=== PATIENT | female | born 1960 | race Caucasian/White ===

== ENCOUNTER 2024-09-09 08:40 | Observation (INO) ==
--- NOTE | 2024-08-21 15:52 | PAT Medication Instructions ---
Medication Instructions Date of Service August 21, 2024 Home Medications Medication Instructions Recorded hydrocodone 5 mg-acetaminophen 325 1 tab PO Q6H PRN pain #20 tabs 10/15/24 mg tablet aspirin 81 mg tablet,delayed release 81 mg PO QPM carvedilol 6.25 mg tablet 6.25 mg PO HS cholecalciferol (vitamin D3) 50 mcg (2,000 unit) capsule 50 mcg PO QPM montelukast 10 mg tablet 10 mg PO HS olmesartan 20 mg tablet 20 mg PO HS rosuvastatin 5 mg tablet 5 mg PO HS triamcinolone acetonide 55 mcg nasal spray aerosol (Nasacort) 1 spray intranasal QAM hydrocodone 5 mg-acetaminophen 325 mg tablet 1 tab PO Q6H PRN acetaminophen 650 mg tablet,extended release 650 - 1,300 mg PO Q12H PRN ascorbic acid (vitamin C) 1,000 mg tablet (Vitamin C) 1 g PO QPM ferrous sulfate, dried 159 mg (45 mg iron) tablet,extended release (iron ER) 159 mg PO QPM gabapentin 100 mg capsule 100 mg PO BID levocetirizine 5 mg tablet 5 mg PO HS omeprazole 20 mg tablet,delayed release 20 mg PO HS Continue as directed triamcinolone acetonide 55 mcg nasal spray aerosol (Nasacort) 1 spray intranasal QAM ASK your prescriber and surgeon aspirin 81 mg tablet,delayed release 81 mg PO QPM Take morning of surgery With a small sip of water, OTHERWISE NOTHING TO EAT OR DRINK AFTER MIDNIGHT: hydrocodone 5 mg-acetaminophen 325 mg tablet 1 tab PO Q6H PRN(if needed) acetaminophen 650 mg tablet,extended release 650 - 1,300 mg PO Q12H PRN(if needed) gabapentin 100 mg capsule 100 mg PO BID Take evening before surgery carvedilol 6.25 mg tablet 6.25 mg PO HS cholecalciferol (vitamin D3) 50 mcg (2,000 unit) capsule 50 mcg PO QPM montelukast 10 mg tablet 10 mg PO HS olmesartan 20 mg tablet 20 mg PO HS rosuvastatin 5 mg tablet 5 mg PO HS hydrocodone 5 mg-acetaminophen 325 mg tablet 1 tab PO Q6H PRN(if needed) acetaminophen 650 mg tablet,extended release 650 - 1,300 mg PO Q12H PRN(if needed) ascorbic acid (vitamin C) 1,000 mg tablet (Vitamin C) 1 g PO QPM ferrous sulfate, dried 159 mg (45 mg iron) tablet,extended release (iron ER) 159 mg PO QPM gabapentin 100 mg capsule 100 mg PO BID levocetirizine 5 mg tablet 5 mg PO HS omeprazole 20 mg tablet,delayed release 20 mg PO HS Other Notes If you have any questions please call us at [phone] or [phone] or [phone] or [phone]
--- NOTE | 2024-08-28 11:16 | Anesthesiology Consultation ---
Date of Service August 28, 2024 Assessment & Plan (1) Encounter for pre-operative examination: - anesthesia: I had a detailed discussion with patient regarding her questions regarding neuraxial anesthesia with sedation and general anesthesia, we discussed risks and benefits of both as well as typical approach for above surgery with neuraxial anesthesia and sedation but that if there is patient preference for general anesthesia that can certainly be the approach. 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 She indicated she would like to proceed with neuraxial anesthesia with sedation with confirmation of CO2 monitoring which I advised is standard. She indicated comfort and satisfaction with discussion, denied angel tional questions or concerns. Case also discussed with Dr. Rosales who agreed patient is a candidate for either neuraxial anesthesia with sedation or general anesthesia and that final determination will be to anesthesiologist assigned to case and patient DOS. - Outpatient joint assessment: Patient is currently scheduled for inpatient pathway. If re-evaluated and patient/surgeon requests outpatient pathway, patient is acceptable candidate for outpatient joint program from anesthesia standpoint pending surgeon's office assessment of pt motivation/support/completion of same day joint program preop requirements. - Total time in direct patient care > 40 minutes. Chart Review Chart Review: Acceptable Risk for Surgery and Patient seen in Pre Admission Testing Teaching & Discussion Pre-Anesthesia Teaching/Discussion Notes: Instructed NPO after midnight before surgery, except medications with 15 cc of water. Medication instructions provided according to the PAT guidelines. History Surgery Operation Date: 09/09/24 13:00 Proposed Procedures p Right Total Hip Arthroplasty Anterior - Holland Mata, Height/Weight Height: 5 ft 4 in Weight: 81.3 kg Allergies Allergy/AdvReac Type Severity Reaction Status Date / Time atorvastatin [From Lipitor] Allergy Rash Verified 08/21/24 14:32 diclofenac [From Voltaren] Allergy Hives, Verified 08/21/24 14:32 itching Medications Home Medications Medication Instructions Recorded Confirmed Last Taken aspirin 81 mg tablet,delayed 81 mg PO QPM 01/29/24 08/21/24 Unknown release carvedilol 6.25 mg tablet 6.25 mg PO HS 01/29/24 08/21/24 Unknown cholecalciferol (vitamin D3) 50 50 mcg PO QPM 01/29/24 08/21/24 Unknown mcg (2,000 unit) capsule montelukast 10 mg tablet 10 mg PO HS 01/29/24 08/21/24 Unknown olmesartan 20 mg tablet 20 mg PO HS 01/29/24 08/21/24 Unknown rosuvastatin 5 mg tablet 5 mg PO HS 01/29/24 08/21/24 Unknown triamcinolone acetonide 55 mcg 1 spray intranasal QAM 01/29/24 08/21/24 Unknown nasal spray aerosol (Nasacort) hydrocodone 5 mg-acetaminophen 325 1 tab PO Q6H PRN pain #20 tabs 07/16/24 08/21/24 Unknown mg tablet acetaminophen 650 mg 650 - 1,300 mg PO Q12H PRN Pain 08/21/24 08/21/24 Unknown tablet,extended release ascorbic acid (vitamin C) 1,000 mg 1 g PO QPM 08/21/24 08/21/24 Unknown tablet (Vitamin C) ferrous sulfate, dried 159 mg (45 159 mg PO QPM 08/21/24 08/21/24 Unknown mg iron) tablet,extended release (iron ER) gabapentin 100 mg capsule 100 mg PO BID 08/21/24 08/21/24 Unknown levocetirizine 5 mg tablet 5 mg PO HS 08/21/24 08/21/24 Unknown omeprazole 20 mg tablet,delayed 20 mg PO HS 08/21/24 08/21/24 Unknown release oxycodone 5 mg tablet 5 mg PO Q6 PRN pain #10 tabs 08/28/24 Unknown Past Medical History Medical History Chronic sinusitis last episode 2019 Dyslipidemia GERD (gastroesophageal reflux disease) controlled, stable per pt History of gastric polyp (~03/2024) benign Hx of colonic polyp (~03/2024) benign Hx of gastritis (~03/2024) started omeprazole, no current symptoms Hypertension controlled, stable per pt PVC (premature ventricular contraction) hx, "occur rarely"; f/u PCP only Thyroid nodule benign per pt. Patient denies h/o stroke, seizures, heart attack, heart failure, DM, blood clots/DVTs or blood transfusions. Exercise / Class Metabolic Activity II 4-5 Yardwork/Stairs/Walk up hill (denies chest discomfort or shortness of breath with one flight of stairs) Past Surgical History Surgical History History of esophagogastroduodenoscopy (EGD) History of surgery thyroid biopsy-benign Hx laparoscopic cholecystectomy 1997 Hx of arthroscopy of left knee Hx of colonoscopy 03/2024 Hx of thumb surgery 2014, right thumb arthroplasty Hx of tooth extraction Past Anesthesia History No Hx of Anesthesia Complications and No Family Hx of Anesthesia Complications History of PONV No Hx of PONV and No Hx of Motion Sickness Social History Smoking Status: Never smoker Do You Dip or Chew Tobacco: No Hx Alcohol Use: Yes alcohol intake frequency: holidays/special occasions only Hx Substance Use: No substance use type: does not use Review of Systems Snoring supine, denies witnessed apneas. Patient denies chest pain, shortness of breath, dyspnea on exertion, fever, chills, cough, wheezing, or palpitations. Physical Exam Vital Signs Vitals BP 115/75 P 64 TEMP 98.1 SP02 97% on RA RESP 18 Physical Patient resting comfortably in chair in no acute distress, alert and oriented, responding appropriately throughout visit Full cervical extension range of motion without pain TMD 3.5 finger breadths Mallampati Score 2 Dentition: intact, denies chipped or loose teeth, caps/crowns, implants or bridges Lungs: normal respiratory effort. Good air movement, clear throughout to auscultation, no adventitious breath sounds Cardiac: regular rate and rhythm, no murmurs noted Carotid arteries: negative bruit bilat Lab Results Anesthesia Preop Results Results Anesthesia Widget: WBC 6.06 K/ul (4.8-10.8) 08/28/24 Hgb 12.7 g/dl (12.0-16.0) 08/28/24 Hct 38.2 % (37.0-47.0) 08/28/24 Plt 291 K/uL (130-400) 08/28/24 Na 141 mmol/L (136-145) 08/28/24 K 4.3 mmol/L (3.5-5.1) 08/28/24 Cl 108 mmol/L (98-107) H 08/28/24 CO2 25 mmol/L (21-32) 08/28/24 BUN 24 mg/dl (6-23) H 08/28/24 Creat 0.86 mg/dl (0.6-1.2) 08/28/24 Glucose Level 101 mg/dl (70-99(Fasting)) H 08/28/24 PT 10.9 Seconds (9.0-12.0) 08/28/24 PTT 25 Seconds (21-31) 08/28/24 INR 1.0 (0.9-1.1) 08/28/24 Blood Type O Positive 08/28/24 Antibody Screen NEGATIVE 08/28/24 Testing Electrocardiogram Date: 08/28/24 NSR, rate 62 bpm Low voltage QRS Nonspecific T wave abnormality Chest X-Ray Date: 08/28/24 No cardiopulmonary disease noted. Echocardiogram Date: 07/25/23 EF 55-60% Mild mitral insufficiency Mild tricuspid insufficiency Mild pulmonic insufficiency Patient has hx of a PFO. There is no intracardiac shunt visualized
[~2024-09-09 08:40] MED LIST: ROPIVACAINE 0.5% 5 MG/ML 30 ML VIAL ONE
[2024-09-09] MEDS ORDERED: PROPOFOL IV EMULSION 10 MG/ML 20 ML VIAL IV ONE (09:44)
[2024-09-09] MEDS ORDERED: LIDOCAINE 2% 2 ML VIAL/AMP(20MG/ML) INFIL ONE (09:44)
[2024-09-09] MEDS ORDERED: MIDAZOLAM HCL 1 MG/ML 2ML VIAL ONE ×2 (09:44)
[2024-09-09] MEDS: FAMOTIDINE 20 MG TAB PO SCH (09:51)
[2024-09-09] MEDS: ACETAMINOPHEN 500 MG TAB PO SCH ×2 (09:51→15:47)
[2024-09-09] MEDS: GABAPENTIN 300 MG CAP PO SCH (09:51)
[2024-09-09] MEDS: dexAMETHasone**PF** 10 MG/ML VIAL IV SCH (09:52)
[2024-09-09] MEDS: SODIUM CHLORIDE 0.9% 1,000 ML IV SCH (09:52)
--- NOTE | 2024-09-09 10:32 | History & Physical Bridge Note ---
Date of Service September 09, 2024 History & Physical Bridge Note I have examined the patient, reviewed the History & Physical and in the interval since the performance of the History & Physical I have noted the following changes of clinical significance: no changes noted
[2024-09-09] MEDS ORDERED: KETOROLAC 30 MG/ML VIAL IV PRN (11:12)
[2024-09-09] MEDS ORDERED: ePHEDrine sulfate 50 MG/ML AMP IV PRN (11:12)
[2024-09-09] MEDS ORDERED: ATROPINE SULFATE 0.1 MG/ML 10ML SYR IV PRN (11:12)
[2024-09-09] MEDS ORDERED: HYDROmorphone INJ 1 MG/ML SYRINGE IV PRN (11:12)
[2024-09-09] MEDS ORDERED: ONDANSETRON INJ 2 MG/ML 2 ML VIAL IV PRN ×2 (11:12→13:11)
[2024-09-09] MEDS: TRANEXAMIC ACID 1,000 MG **IV Pre-op IV SCH (11:13)
[2024-09-09] MEDS: ceFAZolin 2000MG 2,000 MG/15 ML SYR IV SCH ×2 (11:27→20:04)
[2024-09-09] MEDS ORDERED: PHENYLEPHRINE HCL 10 MG/ML VIAL ONE (11:55)
[2024-09-09] MEDS: ORTHO JOINT ANESTHETIC ONE (12:11)
[2024-09-09] MEDS: ROPIV 0.5% 246mg, Ketorolac 30mg, EPINEPHrine 0.5mg in NSS INFIL SCH (12:30)
[2024-09-09] MEDS: TRANEXAMIC ACID 1,000 MG **IV Intra-op IV SCH (12:43)
--- NOTE | 2024-09-09 12:47 | Operative Report ---
PG Post Operative Report Pre & Post Diagnosis Operation Date: 09/09/24 11:00 Pre-Op Diagnosis: osteoarthritis of right hip Post-Op Diagnosis: osteoarthritis of right hip I identified the patient and participated in the time-out.: Yes Procedure Operation Date: 09/09/24 11:00 Actual Procedures p Right Total Hip Arthroplasty Anterior(Right) - Holland Mata DO Surgeon Holland Mata DO Supervisor [employer] Elayne Tavera PA-C Estimated Blood Loss 250 Findings Consistent with Post-Op Diagnosis Specimens Right femoral head Description of Procedure Implants used I used a ZimmerBiomet total hip arthroplasty system with a size 3 standard Avenir Complete stem, a 48 mm G7 cup with a 25mm screw, an E1 polyethylene liner, a 32 mm ceramic head with a 0 neck. Pari arrived at the hospital for the above procedure. She was seen in the preoperative holding area and the operative extremity was identified and signed. She was given a spinal anesthetic, a preoperative antibiotic, and TXA. She was then taken back to the operating room and laid on the table in the supine position. She was given basic sedation. The operative leg was secured to a Puristst leg positioner. The hip was then prepped and draped in sterile fashion. A timeout was done and the patient and the operative extremity was properly identified. An anterior approach was used. Dissection was taken down through the fascia and the tensor muscle belly was retracted laterally and the rectus was retracted medially. The circumflex vessels were identified and ligated. The capsule was then incised and tagged for later repair. The femoral neck was then cut and the femoral head was removed. The acetabulum was exposed. Time was spent doing a complete circumferential labral release. Sequential reaming of the acetabulum up to a size 47 reamer was done. Final reamings were done under fluoroscopy to ensure appropriate version. A Biomet 48 mm G7 cup was then impacted into place. A single 25 mm screw was placed. The E1 polyethylene liner was then snapped into place. Surrounding soft tissues were then injected with 100 cc of an orthopedic pain control cocktail. The proximal femur was then exposed. Sequential broaching up to a size 3 broach was done. Off that broach a size 32 head with a 0 neck was trialed. The hip wa s reduced and fluoroscopic images showed anatomic alignment of the implants in acceptable length. The broach was removed. The final size 3 standard offset Avenir Complete stem was then impacted into place. A ceramic 32 mm head with a 0 neck was then impacted onto the stem and the hip was reduced. Final fluoroscopic images showed anatomic alignment of the hip. The capsule was then closed with #1 Vicryl suture. A dilute betadyne lavage was then done for 3 minutes. The joint was then irrigated with normal saline solution. The fascia was closed with #1 PDS suture. Skin was closed with 2-0 Vicryl, norbert, and a Silverlon dressing. She was then transferred to a hospital bed and taken to the post anesthesia care unit in stable condition. She tolerated the procedure well. Elayne Tavera PA-C, was present for the entire procedure. He was critical for patient positioning, prepping, draping, retraction exposure, wound closure and application of sterile dressing. I attest to the content of the Intraoperative Record and any orders documented therein. Any exceptions are noted below.
[2024-09-09] MEDS ORDERED: METOCLOPRAMIDE HCL INJ 5 MG/ML 2 ML VIAL IV PRN (13:11)
[2024-09-09] MEDS ORDERED: NALOXONE HCL 0.4 MG/1 ML VIAL/CARP IV PRN (13:11)
[2024-09-09] MEDS ORDERED: bisacodyL 10 MG SUPP PR PRN (13:11)
[2024-09-09] MEDS ORDERED: diphenhydrAMINE Capsule 25 MG CAP PO PRN (13:11)
[2024-09-09] MEDS ORDERED: HYDROmorphone INJ 0.5 MG/0.5 ML SYR IV PRN (13:11)
[2024-09-09] MEDS ORDERED: MAGNESIUM HYDROXIDE SUSP 30 ML UDC PO PRN (13:11)
--- NOTE | 2024-09-09 13:29 | Fluoroscopy Report ---
FL hip RT 1V CLINICAL HISTORY: RIGHT ANTERIOR THAright hip arthroplasty COMPARISON STUDY: MRI 01/15/2024 FLUOROSCOPY TIME: 15.9 seconds FLUOROSCOPY IMAGES: 4 EXPOSURE DOSE: 1.5046 mGy FINDINGS: Mid pelvic calcification suggestive of a fibroid. Satisfactory alignment of the right hip a rthroplasty. Expected postoperative soft tissue swelling with deep tissue air. IMPRESSION: Fluoroscopic assistance as above. ACT 112: Negative or not required by law. Electronically signed by: Shiv Jeffers M.D. 09/09/2024 1:27 PM
--- NOTE | 2024-09-09 13:58 | XRay Report ---
XR hip 1V RT w pelvis CLINICAL HISTORY: IN PACU - Post Surgical TECHNIQUE: 1 view of the right hip and single frontal view of the pelvis were obtained. Comparison: Comparison is made to hip radiograph 09/09/2024 FINDINGS: Patient is status post total hip arthroplasty with expected postsurgical changes including soft tissu e swelling and subcutaneous emphysema. Joint spaces are well-preserved. Calcified fibroid is inciden tally noted. IMPRESSION: Expected postoperative appearance status post placement of total hip arthroplasty. ACT 112: Negative or not required by law. Electronically signed by: Ananth Lopez M.D. 09/09/2024 1:56 PM
--- NOTE | 2024-09-09 14:50 | Anesthesiology Progress Note ---
Date of Service September 09, 2024 Anesthesia Post Procedure Vital Signs Vital Signs: Temp Pulse Resp BP Pulse Ox O2 Del Method O2 Flow Rate 09/09/24 14:15 36.4 C L 81 14 107/63 96 Room Air 09/09/24 14:05 75 14 111/69 94 Room Air 09/09/24 13:55 78 16 123/67 95 Room Air 09/09/24 13:45 74 14 115/71 97 Room Air 09/09/24 13:35 73 12 124/72 100 Oxymask 4 09/09/24 13:25 73 14 102/64 100 Oxymask 6 09/09/24 13:15 36 C L 79 16 111/70 95 Oxymask 6 09/09/24 09:42 36.8 C 70 18 150/79 H 98 Room Air Transfer of Care Handoff Completed per policy Notes Mental Status: alert / awake / arousable Patient Amnestic to Procedure: Yes Nausea / Vomiting: adequately controlled Pain: adequately controlled Airway Patency, RR, SpO2: stable & adequate BP & HR: stable & adequate Hydration State: stable & adequate Neuraxial Anesthesia: was administered and sensory block is resolving Anesthetic Complications: no major complications apparent
[2024-09-09] MEDS: LR 500ML BOLUS, THEN 15ML/HR IV SCH (15:14)
[2024-09-09] MEDS: LR 60ML/HR IV SCH (15:14)
[2024-09-09] MEDS: KETOROLAC TROMETHAMINE 15 MG/ML VIAL IV SCH (15:43)
[2024-09-09] MEDS: oxyCODONE HCL IR 5 MG TAB (IMMEDIATE RELEASE) PO PRN (17:50)
[2024-09-09] MEDS: ASCORBIC ACID 500 MG TAB PO SCH (20:10)
[2024-09-09] MEDS: CHOLECALCIFEROL 25 MCG (1000 UNITS) TAB PO SCH (20:10)
[2024-09-09] MEDS: LOSARTAN POTASSIUM 50 MG TAB PO SCH (20:10)
[2024-09-09] MEDS: FERROUS SULFATE 325 MG TAB PO SCH (20:10)
[2024-09-09] MEDS: PANTOprazole 40 MG TAB PO SCH (20:10)
[2024-09-09] MEDS: CETIRIZINE HCL 10 MG TABLET PO SCH (20:10)
[2024-09-09] MEDS: ROSUVASTATIN CALCIUM 5 MG TAB PO SCH (20:10)
[2024-09-09] MEDS: GABAPENTIN 100 MG CAP PO SCH (20:10)
[2024-09-09] MEDS: carvediloL 6.25 MG TAB PO SCH (20:11)
[2024-09-09] MEDS: MONTELUKAST SODIUM 10 MG TABLET PO SCH (20:11)
[2024-09-09] MEDS: SENNA 8.6 MG TAB PO SCH (20:14)
[2024-09-09] MEDS: DOCUSATE SODIUM 100 MG CAP PO SCH (20:14)
[2024-09-10 05:24] VITALS: PULSE 68
--- NOTE | 2024-09-10 06:37 | Orthopedic Progress Note ---
Date of Service September 10, 2024 Assessment & Plan (1) Status post right hip replacement: Overall she is doing fairly well. She is not having much pain in the right hip. She will be seen by physical therapy today for ambulation and range of motion exercises. She is on aspirin for DVT prophylaxis. She can be discharged to home later today. She will follow-up with orthopedics in 2 weeks. Mindi Yañez was seen and examined at bedside this morning. Overall she is doing fairly well. She is not having much pain in the right hip. She has been up and ambulating to the bathroom. She has no complaints.. Review of Systems All systems reviewed & are unremarkable except as noted in HPI & below. Physical Exam On physical exam of the right hip, the dressing is clean and dry. Her leg is out full extension. She has active dorsiflexion plantarflexion of her right ankle.. Results & Data Results & Data Laboratory Results . Diagnostic Findings Postoperative x-rays of the right hip show the prosthesis to be in anatomic alignment without any evidence of fracture complication, or loosening.. PG Care Time/CCT Total # of Minutes Spent Total Time Spent with Patient: Total time spent is greater than 50% in coordination of care (as documented) at patient's floor/unit and/or counseling patient: Coding Level of Care Code 93367 Post Operative Follow-Up Diagnoses Status post right hip replacement Z96.641
--- NOTE | 2024-09-10 06:38 | Discharge Summary ---
Date of Service September 10, 2024 Principal Diagnosis Same as "Discharge Diagnosis" noted below under Discharge Instructions. Discharge Exam On physical exam of the right hip, the dressing is clean and dry. Her leg is out full extension. She has active dorsiflexion plantarflexion of her right ankle.. Discharge Data Procedures Performed Operation Date: 09/09/24 11:00 Actual Procedures p Right Total Hip Arthroplasty Anterior(Right) - Holland Mata DO Ordered Studies 09/09/24 FL hip RT 1V Routine Hospital Course (1) Status post right hip replacement: On September 09, 2024 Pari arrived at [facility] and underwent a right hip replacement without complication. She had a spinal anesthetic. Postoperatively she was started on aspirin for DVT prophylaxis and transferred to the general orthopedic floors. Her hospital course was uneventful. On postop day #1, her vital signs were stable and her pain was well-controlled. She was able to participate well with physical therapy doing ambulation and range of motion exercises. She was then discharged to home. She will follow-up orthopedics in 2 weeks. PG Care Time/CCT Total # of Minutes Spent Total Time Spent with Patient: Total time spent is greater than 50% in coordination of care (as documented) at patient's floor/unit and/or counseling patient: Discharge Plan Discharge Items Patient Disposition: Home - Self-Care Reason For Visit: Right Hip Osteorarthritis Discharge Diagnosis: Right hip replacement Activity: Per Instructions section Non-emergency contact: Surgeon Call non-emergency contact if: your wound has increased redness and your wound has increased drainage Follow-up/Referrals: Aline Quintanilla [Primary Care Provider] - Diet: Regular Addtl Attending Provider Instructions: Activity and Therapy Recommendations: * If you are using [facility] then therapy will be provided at your home until they feel you have accomplished all of your goals. * If you are using [facility] then Physical Therapy will be provided until they feel you are ready to start Outpatient Physical Therapy. * If you are not using home therapy then Outpatient Physical Therapy should start about 3-5 days from your day of surgery. Therapy will last about 6-10 weeks * You were shown a series of exercises in the hospital. Do these exercises three times each day including the exercises you were shown in physical therapy. * Get up and walk several times each day.~ For the first four weeks, try not to stand or walk for more than one hour at a time. If you do stand or walk for more than one hour, you will not hurt anything, but your leg will likely swell.~~ * As you feel comfortable, you may change from the walker or crutches to a cane and~then to independent walking. Medications: * Narcotic You will likely be sent home from the hospital with a prescription for the narcotic pain medication that worked best throughout your stay. * Cefadroxil -take the antibiotic twice a day for 10 days to help prevent infection. * Aspirin Most patients will be required to take Aspirin 81mg twice a day for 6 weeks after surgery. This is obtained [id number] and a prescription is not necessary. * Other medications may be prescribed for specific circumstances. If you have any questions, please call the office at . * Resume previous home medications unless otherwise instructed TEDs/Elastic Stockings: The white elastic stockings help limit swelling and prevent blood clots from forming in your legs. The more you wear them, the more they work. Wear them for six weeks. Dressing Care: Leave the Silverlon dressing in place for 7 days. After 7 days you may remove the dressing. If the incision is not draining then you may leave the norbert open to air. If there is a little bit of drainage or if the norbert are getting stuck on your clothing then cover the incision with a dry dressing. The norbert will be removed at your 2 week follow-up appointment. Showering: You may shower with the Silverlon dressing in place. Do not let the shower spray hit the dressing directly. Pat the Silverlon dressing dry. If the dressing becomes wet underneath, then simply remove the dressing. Keep the incision dry until you are 7 days out from the day of surgery. After 7 days you may remove the Silverlon dressing and shower with the norbert exposed. Let soapy water run over the norbert and pat them dry. Do not scrub or soak the incision. Diet: You may resume your previous diet. Things To Watch For: * Drainage from the incision site that occurs more than one week after your surgery. * Increased redness at the incision site. * Fever above 102 degrees Fahrenheit. * Unusual chest pain or shortness of breath. * Call [facility] at with any of the above problems Follow-Up Visit: Follow-up with Dr. Mata's office 2-3 weeks after your day of surgery. We will remove your norbert and answer any questions. If you have any additional questions or concerns, Dr Mata is usually in the office at the same time and will be available An appointment was probably scheduled when you signed-up for surgery in the office. If you have any questions call Office Instructions: More detailed instructions as well as Frequently Asked Questions were provided in a folder by our office when you signed-up for surgery. Please review these instructions when you get home. If you have any further questions or concerns, please feel free to call the office at [phone] Pending Studies at Discharge: No Stand-Alone Forms: My [facility] [email or web address], Smoking Cessation Medications and DC Order Prescriptions: New cefadroxil 500 mg capsule 500 mg PO BID 10 Days Qty: 20 0RF Continued olmesartan [Benicar] 20 mg tablet 20 mg PO HS rosuvastatin 5 mg tablet 5 mg PO HS carvedilol [Coreg] 6.25 mg tablet 6.25 mg PO HS Rx Instructions: must administer with a meal/food cholecalciferol (vitamin D3) 50 mcg (2,000 unit) capsule 50 mcg PO QPM triamcinolone acetonide [Nasacort] 55 mcg aerosol,spray 1 spray intranasal QAM Rx Instructions: administer into each nostril montelukast 10 mg tablet 10 mg PO HS ascorbic acid (vitamin C) [Vitamin C] 1,000 mg Tablet 1 g PO QPM acetaminophen 650 mg Tablet Extended Release 650 - 1,300 mg PO Q12H PRN (Reason: Pain) Patient Comments: 650mg QAM, 1300mg QPM, and 650mg HS every day gabapentin 100 mg Capsule 100 mg PO BID Patient Comments: planning to wean herself off of this med 1 week prior to sx on 09/09/24 levocetirizine 5 mg Tablet 5 mg PO HS omeprazole 20 mg Tablet,Delayed Release (Dr/Ec) 20 mg PO HS iron 159 mg (45 mg iron) Tablet Extended Release 159 mg PO QPM oxycodone 5 mg tablet 5 mg PO Q6 PRN (Reason: pain) Qty: 30 0RF Changed aspirin 81 mg tablet,delayed release (DR/EC) 81 mg PO BID 42 Days Qty: 0 0RF Discharge Orders: Discharge Order (Routine); Ordered 09/10/24 Ordered By: Holland Mata Admission Data Admit Date/Time: 09/09/24 13:11 Attending Provider: Holland Mata Admit Provider: Holland Mata Primary Care Provider: Aline Quintanilla Other Providers: [facility]; [facility]
[2024-09-10 07:17] VITALS: BP 119/67; RESP 18; TEMP 97.9; O2SAT 99
[2024-09-10] MEDS: dexAMETHasone 4 MG TAB PO SCH (08:02)
[2024-09-10] MEDS: FLUTICASONE PROPIONATE NA SPR 16 GM BTL SCH (08:02)
[2024-09-10] MEDS: MULTIVITAMIN TAB PO SCH (08:02)
[2024-09-10] MEDS ORDERED: ASPIRIN 81 MG ECTAB PO SCH (21:00)
== END 2024-09-10 10:59 | disposition home or self-care (01) ==
LOC: ASU 08:40 → 3E 08:40